=== PATIENT | female | born 1955 | race Caucasian/White ===

== ENCOUNTER → 2017-02-11 | Outpatient (CLI) | payer MEDICARE | END | disposition home or self-care (01) | LOC: LABWHC1 14:24 | PROVIDERS: ATTEND Surgery | DX: E21.3 Hyperparathyroidism, unspecified (principal); R89.9 Unspecified abnormal finding in specimens from other organs, systems and tissues | CPT/HCPCS: 36415; 83970 ==

== ENCOUNTER → 2017-02-17 | Outpatient (CLI) | payer MEDICARE ==
--- NOTE | 2017-02-18 08:30 | NM ---
EXAMINATION TYPE: NM parathyroid w/spect DATE OF EXAM: 02/17/2017 COMPARISON: NONE HISTORY: Hyperparathyroidism TECHNIQUE: Following administration of 26.8 mCi Tc99m Sestamibi. Anterior projection images of the neck and ches t were obtained 10 minutes and 3.5 hours post injection. SPECT images of the neck and chest were obt ained and reconstructed in three axes. FINDINGS: Thyroid tracer washout: Delayed images demonstrate near-complete tracer washout from the thyroid. Parathyroid uptake: None. The two-hour delayed images do not demonstrate any focal abnormal persisten t uptake in the region of the parathyroid glands to suggest parathyroid adenoma. Normal uptake: There is physiological tracer uptake in the myocardium, liver, salivary glands, and th yroid gland. IMPRESSION: Normal parathyroid imaging study. No evidence for mediastinal uptake to suggest mediastinal parathyro id adenoma
== END | disposition home or self-care (01) ==
LOC: RADNMMAIN 10:49
PROVIDERS: ATTEND Surgery
DX: E21.0 Primary hyperparathyroidism (principal); R89.9 Unspecified abnormal finding in specimens from other organs, systems and tissues
CPT/HCPCS: 78071; A9500

== ENCOUNTER → 2017-02-18 | Outpatient (CLI) | payer MEDICARE | END | disposition home or self-care (01) | LOC: LABWHC1 12:10 | PROVIDERS: ATTEND Surgery | DX: E21.0 Primary hyperparathyroidism (principal) | CPT/HCPCS: 36415; 82310 ==

== ENCOUNTER 2018-03-23 11:47 | Inpatient (IN) | payer MEDICARE ==
[2018-03-23] MEDS ORDERED: IPRATROPIUM-ALBUTEROL 3 ML NEB INHALATION STA (12:21)
[2018-03-23] MEDS ORDERED: SODIUM CHLORIDE 0.9% 1,000 ML IV STA (12:21)
--- NOTE | 2018-03-23 12:26 | ED ---
General Adult HPI - General Chief complaint: Shortness of Breath Stated complaint: COPD-sent by Time Seen by Provider: 03/23/18 12:07 Source: patient, RN notes reviewed Mode of arrival: ambulatory Limitations: no limitations - History of Present Illness Initial comments: Patient 62-year-old female presented to the emergency room today with a chief complaint of cough congestion over the last week. She does admit that 2 weeks ago she was getting out of bed and she felt pop. She states that she felt family doctor and diagnosed with a rib fracture. She states that she was then diagnosed with a pneumonia. Started on antibiotics. She states today for 8 days. She states she finished 3 days ago. Does have history stating that he's been doing breathing treatments. States that she does not feel any better. Still having cough congestion and pain on the left side where this rib is injured. She states that she call the family doctor was advised coming here in emergency room. Patient denies any recent fever, chills, shortness of breath, back pain, abdominal pain, nausea or vomiting, numbness or tingling, headaches or visual changes, or any other complaints. - Related Data Home Medications Medication Instructions Recorded Confirmed Albuterol Inhaler [Ventolin Hfa 2 puff INHALATION RT-Q4H PRN 02/05/14 03/23/18 Inhaler] Cranberry Conc/C/Bacill Coag 1 tab PO DAILY 09/11/14 03/23/18 [Cranberry Tablet] Ipratropium-Albuterol Nebulize 3 ml INHALATION RT-QID PRN 09/11/14 03/23/18 [Duoneb 0.5 mg-3 mg/3 ml Soln] Acetylcysteine [Nac] 500 mg PO DAILY 03/23/18 03/23/18 Aspirin [[place] Aspirin EC] 81 mg PO DAILY 03/23/18 03/23/18 Ibuprofen [Motrin] 800 mg PO Q6H PRN 03/23/18 03/23/18 Loratadine [Claritin] 10 mg PO DAILY 03/23/18 03/23/18 Mometasone/Formoterol [Dulera 200 2 puff INHALATION RT-BID 03/23/18 03/23/18 Mcg/5 Mcg Inhaler] Montelukast [Singulair] 10 mg PO HS 03/23/18 03/23/18 Omeprazole 20 mg PO DAILY 03/23/18 03/23/18 Vitamin B Complex 1 cap PO DAILY 03/23/18 03/23/18 Allergies Allergy/AdvReac Type Severity Reaction Status Date / Time beclomethasone [From Qvar] Allergy Anaphylaxis Verified 03/23/18 12:30 budesonide [From Pulmicort] Allergy Anaphylaxis Verified 03/23/18 12:30 Review of Systems ROS Statement: Those systems with pertinent positive or pertinent negative responses have been documented in the HPI. ROS Other: All systems not noted in ROS Statement are negative. Past Medical History Past Medical History: Chest Pain / Angina, COPD, Renal Disease Additional Past Medical History / Comment(s): angioedema no reactions for 10 years. 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 History of Any Multi-Drug Resistant Organisms: None Reported Past Surgical History: Cholecystectomy, Tubal Ligation Additional Past Surgical History / Comment(s): kidney stones, kidney stent Past Anesthesia/Blood Transfusion Reactions: No Reported Reaction Past Psychological History: No Psychological Hx Reported Smoking Status: Current every day smoker Past Alcohol Use History: None Reported Past Drug Use History: None Reported - Past Family History Father Additional Family Medical History / Comment(s): AT AGE 79-[place], DEPRESSION Mother Family Medical History: Hypertension, Thyroid Disorder Additional Family Medical History / Comment(s): MOM IS 84 YEARS OLD Brother(s) Family Medical History: Myocardial Infarction ([place]) Additional Family Medical History / Comment(s): one brother had brain aneurysm. 2nd brother had [place] General Exam - General Exam Comments Initial Comments: General: The patient is awake and alert, in no distress, and does not appear acutely ill. Eye: Pupils are equal, round and reactive to light. Extra-ocular movements are intact. No nystagmus. There is normal conjunctiva bilaterally. No signs of icterus. Ears, nose, mouth and throat: There are moist mucous membranes and no oral lesions. Neck: The neck is supple, there is no tenderness or JVD. Cardiovascular: There is a regular rate and rhythm. No murmur, rub or gallop is appreciated. Respiratory: Decreased lung sounds bilaterally. respirations are non-labored, breath sounds are equal. No wheezes, stridor, rales, or rhonchi. Gastrointestinal: Soft, non-distended, non-tender abdomen without masses or organomegaly noted. There is no rebound or guarding present. No CVA tenderness. Bowel sounds are unremarkable. Musculoskeletal: Normal ROM, no tenderness. Sensation intact. Strength 5/5. Pulses equal bilaterally 2+. Neurological: A&O x 3. CN II-XII intact, There are no obvious motor or sensory deficits. Coordination appears grossly intact. Speech is normal. Skin: Skin is warm and dry and no rashes or lesions are noted. Psychiatric: Cooperative, appropriate mood & affect, normal judgment. Limitations: no limitations Course Vital Signs 03/23/18 03/23/18 03/23/18 12:01 12:42 12:50 Temperature 98.6 F Pulse Rate 115 H 74 78 Respiratory 24 Rate Blood Pressure 116/74 O2 Sat by Pulse 96 Oximetry Medical Decision Making - Medical Decision Making Patient reexamined at this time shows no signs of icterus or dressing covered. As a matter improvement after breathing treatment. Patient's lung sounds are clear. Chest x-rays reviewed does show possible right sided pneumonia. Patient was treated with Levaquin for 8 days. Patient. Patient's labs been reviewed shows a 17,000 white count. Patient was tachycardic at triage. She had taken breathing treatment prior to arrival. Tachycardia is felt to be due to albuterol and history of COPD not due to sepsis at this time. Patient has been started on antibiotics of Rocephin, azithromycin. Patient be admitted. - Lab Data Result diagrams: 03/23/18 12:41 03/23/18 12:41 Lab Results 03/23/18 03/23/18 03/23/18 Range/Units 12:41 12:41 12:41 WBC 17.0 H (3.8-10.6) k/uL RBC 4.43 (3.80-5.40) m/uL Hgb 12.9 (11.4-16.0) gm/dL Hct 39.9 (34.0-46.0) % MCV 90.1 (80.0-100.0) fL MCH 29.1 (25.0-35.0) pg MCHC 32.3 (31.0-37.0) g/dL RDW 13.0 (11.5-15.5) % Plt Count 545 H (150-450) k/uL Neutrophils % 87 % Lymphocytes % 8 % Monocytes % 4 % Eosinophils % 1 % Basophils % 0 % Neutrophils # 14.8 H (1.3-7.7) k/uL Lymphocytes # 1.3 (1.0-4.8) k/uL Monocytes # 0.7 (0-1.0) k/uL Eosinophils # 0.1 (0-0.7) k/uL Basophils # 0.0 (0-0.2) k/uL Sodium 141 (137-145) mmol/L Potassium 4.5 (3.5-5.1) mmol/L Chloride 106 (98-107) mmol/L Carbon Dioxide 26 (22-30) mmol/L Anion Gap 9 mmol/L BUN 12 (7-17) mg/dL Creatinine 0.60 (0.52-1.04) mg/dL Est GFR (CKD-EPI)AfAm >90 (>60 ml/min/1.73 sqM) Est GFR (CKD-EPI)NonAf >90 (>60 ml/min/1.73 sqM) Glucose 105 H (74-99) mg/dL Plasma Lactic Acid Kody (0.7-2.0) mmol/L Calcium 11.0 H (8.4-10.2) mg/dL Total Bilirubin 0.5 (0.2-1.3) mg/dL AST 19 (14-36) U/L ALT 15 (9-52) U/L Alkaline Phosphatase 122 (38-126) U/L Total Creatine Kinase 55 (30-135) U/L CK-MB (CK-2) 0.9 (0.0-2.4) ng/mL CK-MB (CK-2) Rel Index 1.6 Troponin I <0.012 (0.000-0.034) ng/mL Total Protein 7.7 (6.3-8.2) g/dL Albumin 4.1 (3.5-5.0) g/dL 03/23/18 Range/Units 12:41 WBC (3.8-10.6) k/uL RBC (3.80-5.40) m/uL Hgb (11.4-16.0) gm/dL Hct (34.0-46.0) % MCV (80.0-100.0) fL MCH (25.0-35.0) pg MCHC (31.0-37.0) g/dL RDW (11.5-15.5) % Plt Count (150-450) k/uL Neutrophils % % Lymphocytes % % Monocytes % % Eosinophils % % Basophils % % Neutrophils # (1.3-7.7) k/uL Lymphocytes # (1.0-4.8) k/uL Monocytes # (0-1.0) k/uL Eosinophils # (0-0.7) k/uL Basophils # (0-0.2) k/uL Sodium (137-145) mmol/L Potassium (3.5-5.1) mmol/L Chloride (98-107) mmol/L Carbon Dioxide (22-30) mmol/L Anion Gap mmol/L BUN (7-17) mg/dL Creatinine (0.52-1.04) mg/dL Est GFR (CKD-EPI)AfAm (>60 ml/min/1.73 sqM) Est GFR (CKD-EPI)NonAf (>60 ml/min/1.73 sqM) Glucose (74-99) mg/dL Plasma Lactic Acid Kody 1.2 (0.7-2.0) mmol/L Calcium (8.4-10.2) mg/dL Total Bilirubin (0.2-1.3) mg/dL AST (14-36) U/L ALT (9-52) U/L Alkaline Phosphatase (38-126) U/L Total Creatine Kinase (30-135) U/L CK-MB (CK-2) (0.0-2.4) ng/mL CK-MB (CK-2) Rel Index Troponin I (0.000-0.034) ng/mL Total Protein (6.3-8.2) g/dL Albumin (3.5-5.0) g/dL Disposition Clinical Impression: CAP (community acquired pneumonia), COPD exacerbation Disposition: ADMITTED IP TO THIS HOSP Condition: Good Is patient prescribed a controlled substance at d/c from ED?: No Referrals: Luc Baugh MD [Primary Care Provider] - 1-2 days Time of Disposition: 13:53
--- NOTE | 2018-03-23 13:16 | XR ---
EXAMINATION TYPE: XR chest 2V DATE OF EXAM: 03/23/2018 COMPARISON: 09/10/2014 TECHNIQUE: PA and lateral views submitted. HISTORY: Cough FINDINGS: Diffuse emphysematous lungs are seen with subsegmental area of consolidation which is somewhat nodula r in the right lower lobe. Mild wedge deformity in the midthoracic spine is stable from the CT scan o f 10/14/2015. Tiny nodule seen overlying the vertebral, and the lateral view. No overt failure or pneu mothorax. Surgical clips in the abdomen noted. IMPRESSION: 1. COPD. There is subsegmental consolidation which has a somewhat nodular pattern along the lateral m argin of the right lower lobe. Could been the basis of atelectasis, scar or early infiltrate. Follow- up to resolution to exclude underlying neoplasm. 2. Chronic appearing compression deformity midthoracic spine unchanged previous CT 60
[2018-03-23 13:17] LABS: ALT 15 U/L (9-52); AST 19 U/L (14-36); Albumin 4.1 g/dL (3.5-5.0); Alkaline Phosphatase 122 U/L (38-126); Anion Gap 9 mmol/L; Blood Urea Nitrogen 12 mg/dL (7-17); Carbon Dioxide 26 mmol/L (22-30); Chloride 106 mmol/L (98-107); Glucose 105 mg/dL (74-99); Potassium 4.5 mmol/L (3.5-5.1); Sodium 141 mmol/L (137-145); Total Bilirubin 0.5 mg/dL (0.2-1.3); Total Protein 7.7 g/dL (6.3-8.2)
[2018-03-23 13:21] LABS: Creatine Kinase 55 U/L (30-135)
[2018-03-23 13:26] LABS: Basophils % (A) 0 %; Eosinophils # (A) 0.1 k/uL (0-0.7); Eosinophils % (A) 1 %; HCT 39.9 % (34.0-46.0); HGB 12.9 gm/dL (11.4-16.0); Lymphocytes # (A) 1.3 k/uL (1.0-4.8); Lymphocytes % (A) 8 %; MCH 29.1 pg (25.0-35.0); MCHC 32.3 g/dL (31.0-37.0); MCV 90.1 fL (80.0-100.0); Mean Platelet Volume 7.4; Monocytes # (A) 0.7 k/uL (0-1.0); Monocytes % (A) 4 %; Neutrophils # (A) 14.8 k/uL (1.3-7.7); Neutrophils % (A) 87 %; Platelet Count 545 k/uL (150-450); RBC 4.43 m/uL (3.80-5.40)
[2018-03-23 13:34] LABS: Creatine Kinase MB 0.9 ng/mL (0.0-2.4); Troponin I <0.012 ng/mL (0.000-0.034)
[2018-03-23] MEDS ORDERED: AZITHROMYCIN 500 MG in SODIUM CHLORIDE 0.9% 250 ML IVPB STA (13:51)
[2018-03-23] MEDS ORDERED: methylPREDNISolone SOD SUCCI 125 MG/2 ML VIAL IV STA (13:51)
[2018-03-23] MEDS ORDERED: SODIUM CHLORIDE 0.9% 1,000 ML IV ONE (13:54)
[2018-03-23] MEDS ORDERED: PNEUMONIA PROTOCOL UTILIZED 1 EACH MISC PO PRN (13:54)
[2018-03-23 14:15] LABS: Appearance,Urine Clear (Clear); Bilirubin,Urine Negative (Negative); Blood,Urine Negative (Negative); Color,Urine Yellow; Glucose,Urine (UA) Negative (Negative); Ketones,Urine Negative (Negative); Leukocyte Esterase,Urine Trace (Negative); Mucus,Urine Rare /hpf; Nitrite,Urine Negative (Negative); PH, Urine 5.5 (5.0-8.0); Protein,Urine Negative (Negative); RBC,Urine 1 /hpf (0-5); Specific Gravity,Urine 1.013 (1.001-1.035); Squamous Epithelial Cell,Urine 1 /hpf (0-4); Urobilinogen,Urine <2.0 mg/dL (<2.0)
[2018-03-23 15:01] LABS: Partial Thromboplastin Time 22.6 sec (22.0-30.0); Prothrombin Time 9.6 sec (9.0-12.0)
--- NOTE | 2018-03-23 15:42 | P.HPIM ---
History of Present Illness H&P Date: 03/23/18 Chief Complaint: Shortness of Breath Patient is a 62-year-old female with a known history of COPD, nephrolithiasis with stent placement and nicotine addiction came to ER with complaints of shortness of breath, cough and congestion for about a week. Patient states that , about 2 weeks ago while she was getting out of the bed she felt a pop below her left anterior rib cage. Since then she is has been having pain and unable to take deep breaths. Patient was diagnosed with a fracture by her family physician and was also getting treated for pneumonia. Patient was on antibiotics for the past 8 days. She finished antibiotics about 3 days ago. Patient still having pain and shortness of breath along with cough and congestion today which is worsening and made her to come to ER for further management. She states that she call the family doctor was advised coming here in emergency room. Patient denies any recent fever, chills, shortness of breath , back pain, abdominal pain, nausea or vomiting, numbness or tingling, headaches or visual changes, or any other complaints. Chest x-ray showed COPD. There is subsegmental consolidation which has somewhat nodular pattern along the lateral margin of the right lower lobe. Could be the basis of the atelectasis. Scar RE infiltrate. Follow-up resolution to exclude underlying neoplasm. Chronic appearing compression deformity mid thoracic spine on change of from prior CT. EKG showed normal sinus rhythm WBC 17.0, UA negative. Review of Systems Constitutional: Patient denies any fever or chills . No generalized weakness or weight loss. Abdomen: Patient denied nausea vomiting and diarrhea and abdominal pain. Cardiovascular: Patient denies any chest pain or short of breath no palpitations. Respiratory: Cough congestion and shortness of breath. Neurologic: Patient denied any numbness or tingling headache. Musculoskeletal: Patient denies any complaints of joint swelling or deformity. Skin: Negative Psychiatric: Negative Endocrine: No heat or cold intolerance. No recent weight gain. Genitourinary: No dysuria or hematuria. All other 14 point ROS negative except the above Past Medical History Past Medical History: Chest Pain / Angina, COPD, Renal Disease Additional Past Medical History / Comment(s): angioedema no reactions for 10 years. 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 History of Any Multi-Drug Resistant Organisms: None Reported Past Surgical History: Cholecystectomy, Tubal Ligation Additional Past Surgical History / Comment(s): kidney stones, kidney stent Past Anesthesia/Blood Transfusion Reactions: No Reported Reaction Past Psychological History: No Psychological Hx Reported Smoking Status: Current every day smoker Past Alcohol Use History: None Reported Past Drug Use History: None Reported - Past Family History Father Additional Family Medical History / Comment(s): AT AGE 79-[place], DEPRESSION Mother Family Medical History: Hypertension, Thyroid Disorder Additional Family Medical History / Comment(s): MOM IS 84 YEARS OLD Brother(s) Family Medical History: Myocardial Infarction ([place]) Additional Family Medical History / Comment(s): one brother had brain aneurysm. 2nd brother had [place] Medications and Allergies Home Medications Medication Instructions Recorded Confirmed Type Albuterol Inhaler [Ventolin Hfa 2 puff INHALATION RT-Q4H PRN 02/05/14 03/23/18 History Inhaler] Cranberry Conc/C/Bacill Coag 1 tab PO DAILY 09/11/14 03/23/18 History [Cranberry Tablet] Ipratropium-Albuterol Nebulize 3 ml INHALATION RT-QID PRN 09/11/14 03/23/18 History [Duoneb 0.5 mg-3 mg/3 ml Soln] Acetylcysteine [Nac] 500 mg PO DAILY 03/23/18 03/23/18 History Aspirin [[place] Aspirin EC] 81 mg PO DAILY 03/23/18 03/23/18 History Ibuprofen [Motrin] 800 mg PO Q6H PRN 03/23/18 03/23/18 History Loratadine [Claritin] 10 mg PO DAILY 03/23/18 03/23/18 History Mometasone/Formoterol [Dulera 200 2 puff INHALATION RT-BID 03/23/18 03/23/18 History Mcg/5 Mcg Inhaler] Montelukast [Singulair] 10 mg PO HS 03/23/18 03/23/18 History Omeprazole 20 mg PO DAILY 03/23/18 03/23/18 History Vitamin B Complex 1 cap PO DAILY 03/23/18 03/23/18 History Allergies Allergy/AdvReac Type Severity Reaction Status Date / Time beclomethasone [From Qvar] Allergy Anaphylaxis Verified 03/23/18 12:30 budesonide [From Pulmicort] Allergy Anaphylaxis Verified 03/23/18 12:30 Physical Exam Vitals: Vital Signs Temp Pulse Resp BP Pulse Ox 03/23/18 15:01 98.0 F 87 20 121/69 96 03/23/18 14:30 22 136/89 97 03/23/18 14:00 22 109/80 03/23/18 13:30 22 114/71 94 L 03/23/18 13:00 22 103/79 03/23/18 12:50 78 03/23/18 12:42 74 03/23/18 12:30 22 105/69 03/23/18 12:01 98.6 F 115 H 24 116/74 96 Intake and Output 03/23/18 03/23/18 03/23/18 06:59 14:59 22:59 Other: Weight 59.421 kg PHYSICAL EXAMINATION: Patient is lying in the bed comfortably, no acute distress, awake alert and oriented.. HEENT: Normocephalic. Neck is supple. Pupils reactive. Nostrils clear. Oral cavity is moist. Ears reveal no drainage. Neck reveals no JVD, carotid bruits, or thyromegaly. CHEST EXAMINATION: Trachea is central. Symmetrical expansion. Bilateral expiratory wheezing and bibasilar diminished air entry. Mild tenderness of the left anterior rib cage.. CARDIAC: Normal S1, S2 with no gallops. No murmurs ABDOMEN: Soft. Bowel sounds normal. No organomegaly. No abdominal bruits. Extremities: reveal no edema. No clubbing or cyanosis Neurologically awake, alert, oriented x3 with well-coordinated movements. No focal deficits noted Skin: No rash or skin lesions. Psychiatric: Coperative. Nonsuicidal Musculoskeletal: No joint swelling or deformity. Normal range of motion. Results CBC & Chem 7: 03/23/18 12:41 03/23/18 12:41 Labs: Abnormal Lab Results - Last 24 Hours (Table) 03/23/18 03/23/18 03/23/18 Range/Units 12:41 12:41 13:39 WBC 17.0 H (3.8-10.6) k/uL Plt Count 545 H (150-450) k/uL Neutrophils # 14.8 H (1.3-7.7) k/uL Glucose 105 H (74-99) mg/dL Calcium 11.0 H (8.4-10.2) mg/dL Ur Leukocyte Esterase Trace H (Negative) Urine Mucus Rare H (None) /hpf Thrombosis Risk Factor Assmnt - DVT/VTE Prophylaxis DVT/VTE Prophylaxis: Pharmacologic Prophylaxis ordered Assessment and Plan Assessment: Acute COPD exacerbation Possible right lower lobe infiltrate/pneumonia Recent left lower anterior rib pain History of renal stones and stent placement Nicotine addiction. Currently a day smoker DVT prophylaxis Plan: Patient will be continued on DuoNeb's and methylprednisolone IV. Continue with antibiotics in the form of ceftriaxone and azithromycin for possible pneumonia. Continue the pain management and incentive spirometry. Continue the home medications and further recommendations based on the clinical course. DVT prophylaxis with heparin subcu. Time with Patient: Greater than 30
[2018-03-23] MEDS: IBUPROFEN 800 MG TAB PO PRN (15:54)
[2018-03-23] MEDS: HEPARIN SODIUM,PORCINE 5,000 UNIT/ML 1 ML VIAL SQ SCH (15:55)
[2018-03-23 16:03] VITALS: BMI 26.4
[2018-03-23] MEDS: methylPREDNISolone SOD SUCCI 125 MG/2 ML VIAL IV SCH (17:47)
[2018-03-23] MEDS ORDERED: SYMBICORT 160-4.5 MCG INHALER INHALATION SCH (20:00)
[2018-03-23] MEDS: MONTELUKAST 10 MG TAB PO SCH (20:04)
[2018-03-23] MEDS: IPRATROPIUM-ALBUTEROL 3 ML NEB INHALATION PRN (20:28)
[2018-03-24] MEDS: IBUPROFEN 800 MG TAB PO PRN ×3 (00:34→15:14)
[2018-03-24] MEDS: HEPARIN SODIUM,PORCINE 5,000 UNIT/ML 1 ML VIAL SQ SCH ×4 (01:25→22:55)
[2018-03-24] MEDS: methylPREDNISolone SOD SUCCI 125 MG/2 ML VIAL IV SCH ×4 (01:25→18:16)
[2018-03-24] MEDS: IPRATROPIUM-ALBUTEROL 3 ML NEB INHALATION PRN ×4 (07:56→20:09)
[2018-03-24 08:04] LABS: Glucose,Whole Blood 127 mg/dL (75-99)
[2018-03-24] MEDS: PANTOPRAZOLE 40 MG TABLET PO SCH (08:17)
[2018-03-24] MEDS: ASPIRIN 81 MG PO SCH (08:17)
[2018-03-24] MEDS ORDERED: AZITHROMYCIN 500 MG in SODIUM CHLORIDE 0.9% 250 ML IVPB SCH (09:00)
[2018-03-24] MEDS ORDERED: NON-FORMULARY DRUG (Vitamin B Complex [Vitamin B Complex] 1 CAP) PO SCH (09:00)
[2018-03-24] MEDS ORDERED: ACETYLCYSTEINE 500 MG PO SCH (09:00)
[2018-03-24] MEDS ORDERED: NON-FORMULARY DRUG (Cranberry Conc/C/Bacill Coag [Cranberry Tablet] 1 TAB) PO SCH (09:00)
--- NOTE | 2018-03-24 10:05 | XR ---
EXAMINATION TYPE: XR chest 2V DATE OF EXAM: 03/24/2018 COMPARISON: 03/23/2018 TECHNIQUE: PA and lateral views submitted. HISTORY: COPD FINDINGS: Diffuse emphysematous lungs are seen with subsegmental area of consolidation which is somewhat nodula r in the right lower lobe. Mild wedge deformity in the midthoracic spine is stable from the CT scan o f 10/14/2015. Tiny nodule seen overlying the vertebral, and the lateral view. No overt failure or pneu mothorax. Surgical clips in the abdomen noted. IMPRESSION: 1. COPD. There is subsegmental consolidation which has a somewhat nodular pattern along the lateral m argin of the right lower lobe. Could be on the basis of atelectasis, scar or early infiltrate. Follow -up to resolution to exclude underlying neoplasm. 2. Chronic appearing compression deformity midthoracic spine
[2018-03-24 12:05] LABS: Glucose,Whole Blood 131 mg/dL (75-99)
[2018-03-24] MEDS: INSULIN ASPART 100 UNIT/ML 1 ML 10 ML VIAL SQ SCH ×3 (13:05→20:34)
[2018-03-24] MEDS: HYDROcodone/APAP 5-325MG 1 EACH TAB PO PRN ×2 (15:58→20:28)
[2018-03-24 17:28] LABS: Glucose,Whole Blood 132 mg/dL (75-99)
[2018-03-24] MEDS: MONTELUKAST 10 MG TAB PO SCH (20:28)
[2018-03-24 20:34] LABS: Glucose,Whole Blood 152 mg/dL (75-99)
[2018-03-24 21:39] LABS: Hemoglobin A1C 5.8 % (4.0-6.0)
[2018-03-24] MEDS: methylPREDNISolone SOD SUCCI 40 MG/ML 1 ML VIAL IV SCH (22:55)
--- NOTE | 2018-03-25 02:08 | P.PN ---
Subjective Progress Note Date: 03/24/18 Principal diagnosis: Pneumonia COPD exacerbation Patient is a 62-year-old female with a known history of COPD, nephrolithiasis with stent placement and nicotine addiction came to ER with complaints of shortness of breath, cough and congestion for about a week. Patient states that , about 2 weeks ago while she was getting out of the bed she felt a pop below her left anterior rib cage. Since then she is has been having pain and unable to take deep breaths. Patient was diagnosed with a fracture by her family physician and was also getting treated for pneumonia. Patient was on antibiotics for the past 8 days. She finished antibiotics about 3 days ago. Patient still having pain and shortness of breath along with cough and congestion today which is worsening and made her to come to ER for further management. She states that she call the family doctor was advised coming here in emergency room. Patient denies any recent fever, chills, shortness of breath , back pain, abdominal pain, nausea or vomiting, numbness or tingling, headaches or visual changes, or any other complaints. Chest x-ray showed COPD. There is subsegmental consolidation which has somewhat nodular pattern along the lateral margin of the right lower lobe. Could be the basis of the atelectasis. Scar RE infiltrate. Follow-up resolution to exclude underlying neoplasm. Chronic appearing compression deformity mid thoracic spine on change of from prior CT. EKG showed normal sinus rhythm WBC 17.0, UA negative. 03/24/2018 Patient says that her breathing is getting better. Left lower rib pain is still present. Continued on Motrin and [place] was added. Otherwise patient will be continued on steroids and breathing treatments and antibiotics. No fever no chills. No other acute overnight issues. Solu-Medrol changed to 40 mg every 8 hourly. Repeat chest x-ray showed COPD there is subsegmental consolidation which is somewhat nodular pattern along the lateral margin of the right lobe. Could be due to atelectasis. Follow-up recommended to rule out malignancy. All other review of systems negative except the above Active Medications Generic Name Dose Route Start Last Admin Trade Name Freq PRN Reason Stop Dose Admin Hydrocodone Bitart/Acetaminophen 1 each 03/24/18 15:39 03/24/18 20:28 [place] 5-325 PO 1 each Q4HR PRN Administration Pain Albuterol/Ipratropium 3 ml 03/23/18 13:54 03/24/18 20:09 Duoneb 0.5 Mg-3 Mg/3 Ml Soln INHALATION 3 ml RT-Q4H PRN Administration shortness of breath Aspirin 81 mg 03/24/18 09:00 03/24/18 08:17 Aspirin PO 81 mg DAILY CHELSEA Administration Azithromycin 500 mg 03/25/18 09:00 Zithromax PO DAILY CHELSEA Heparin Sodium (Porcine) 5,000 unit 03/23/18 16:00 03/24/18 22:55 Heparin SQ 5,000 unit Q8HR CHELSEA Administration Ceftriaxone Sodium 1,000 mg/ 50 mls @ 100 mls/hr 03/24/18 09:00 03/24/18 08: 17 Sodium Chloride IVPB 03/27/18 09:01 100 mls/hr Q24HR CHELSEA Administration Ibuprofen 800 mg 03/23/18 15:35 03/24/18 15:14 Motrin PO 800 mg Q6H PRN Administration Pain Insulin Aspart 0 unit 03/24/18 12:30 03/24/18 20:34 Novolog SQ 2 unit ACHS CHELSEA Administration Protocol Methylprednisolone Sodium Succinate 40 mg 03/25/18 00:00 03/24/18 22:55 Solu-Medrol IV 40 mg Q8H CHELSEA Administration Miscellaneous Information 1 each 03/23/18 13:54 Pneumonia Protocol Utilized PO ONCE PRN Per Protocol Montelukast Sodium 10 mg 03/23/18 21:00 03/24/18 20:28 Singulair PO 10 mg HS CHELSEA Administration Pantoprazole Sodium 40 mg 03/24/18 07:30 03/24/18 08:17 Protonix PO 40 mg [id number] CHELSEA Administration Objective - Vital Signs Vital signs: Vital Signs Temp 98.8 F 03/24/18 14:19 Pulse 88 03/24/18 20:19 Resp 18 03/24/18 18:55 BP 135/71 03/24/18 14:19 Pulse Ox 93 L 03/24/18 14:19 Intake & Output 03/24/18 03/24/18 03/25/18 06:59 18:59 06:59 Intake Total 230 Balance 230 Weight 59.421 kg Intake: Oral 230 Other: Voiding Method Toilet Toilet # Voids 1 3 1 # Bowel Movements 0 - Exam PHYSICAL EXAMINATION: Patient is lying in the bed comfortably, no acute distress, awake alert and oriented.. HEENT: Normocephalic. Neck is supple. Pupils reactive. Nostrils clear. Oral cavity is moist. Ears reveal no drainage. Neck reveals no JVD, carotid bruits, or thyromegaly. CHEST EXAMINATION: Trachea is central. Symmetrical expansion. Bilateral expiratory wheezing and bibasilar diminished air entry. Mild tenderness of the left anterior rib cage.. CARDIAC: Normal S1, S2 with no gallops. No murmurs ABDOMEN: Soft. Bowel sounds normal. No organomegaly. No abdominal bruits. Extremities: reveal no edema. No clubbing or cyanosis Neurologically awake, alert, oriented x3 with well-coordinated movements. No focal deficits noted Skin: No rash or skin lesions. Psychiatric: Coperative. Nonsuicidal Musculoskeletal: No joint swelling or deformity. Normal range of motion. - Labs CBC & Chem 7: 03/23/18 12:41 03/23/18 12:41 Labs: Abnormal Lab Results - Last 24 Hours (Table) 03/24/18 03/24/18 03/24/18 Range/Units 08:01 11:58 17:23 POC Glucose (mg/dL) 127 H 131 H 132 H (75-99) mg/dL 03/24/18 Range/Units 20:32 POC Glucose (mg/dL) 152 H (75-99) mg/dL Microbiology - Last 24 Hours (Table) 03/23/18 14:19 Blood Culture - Preliminary Blood No Growth after 24 hours 03/23/18 12:41 Blood Culture - Preliminary Blood No Growth after 24 hours Assessment and Plan Assessment: Acute COPD exacerbation Possible right lower lobe infiltrate/pneumonia Recent left lower anterior rib / strain History of renal stones and stent placement Nicotine addiction. Currently a day smoker DVT prophylaxis Plan: Patient will be continued on DuoNeb's and methylprednisolone IV. Continue with antibiotics in the form of ceftriaxone and azithromycin for possible pneumonia. Continue the pain management and incentive spirometry. Continue the home medications and further recommendations based on the clinical course. DVT prophylaxis with heparin subcu. Time with Patient: Greater than 30
[2018-03-25] MEDS: IPRATROPIUM-ALBUTEROL 3 ML NEB INHALATION PRN ×2 (07:30→10:43)
[2018-03-25 07:43] LABS: Glucose,Whole Blood 106 mg/dL (75-99)
[2018-03-25 07:59] LABS: Basophils % (A) 0 %; Eosinophils # (A) 0.1 k/uL (0-0.7); Eosinophils % (A) 0 %; HCT 37.9 % (34.0-46.0); HGB 11.7 gm/dL (11.4-16.0); Lymphocytes # (A) 1.6 k/uL (1.0-4.8); Lymphocytes % (A) 9 %; MCH 28.3 pg (25.0-35.0); MCHC 30.8 g/dL (31.0-37.0); MCV 91.7 fL (80.0-100.0); Mean Platelet Volume 6.7; Monocytes # (A) 0.4 k/uL (0-1.0); Monocytes % (A) 2 %; Neutrophils # (A) 16.5 k/uL (1.3-7.7); Neutrophils % (A) 89 %; Platelet Count 640 k/uL (150-450); RBC 4.13 m/uL (3.80-5.40); RDW 12.8 % (11.5-15.5); WBC 18.6 k/uL (3.8-10.6)
[2018-03-25 08:06] LABS: Anion Gap 5 mmol/L; Blood Urea Nitrogen 18 mg/dL (7-17); Calcium 10.6 mg/dL (8.4-10.2); Carbon Dioxide 24 mmol/L (22-30); Chloride 112 mmol/L (98-107); Glucose 109 mg/dL (74-99); Potassium 4.7 mmol/L (3.5-5.1); Sodium 141 mmol/L (137-145)
[2018-03-25] MEDS: INSULIN ASPART 100 UNIT/ML 1 ML 10 ML VIAL SQ SCH ×4 (08:46→20:47)
[2018-03-25] MEDS: HYDROcodone/APAP 5-325MG 1 EACH TAB PO PRN ×3 (08:49→20:42)
[2018-03-25] MEDS: methylPREDNISolone SOD SUCCI 40 MG/ML 1 ML VIAL IV SCH ×2 (08:52→17:15)
[2018-03-25] MEDS: AZITHROMYCIN 500 MG TAB PO SCH (08:52)
[2018-03-25] MEDS: PANTOPRAZOLE 40 MG TABLET PO SCH (08:52)
[2018-03-25] MEDS: ASPIRIN 81 MG PO SCH (08:52)
[2018-03-25] MEDS: HEPARIN SODIUM,PORCINE 5,000 UNIT/ML 1 ML VIAL SQ SCH ×2 (08:53→17:15)
[2018-03-25 12:00] LABS: Glucose,Whole Blood 103 mg/dL (75-99)
[2018-03-25] MEDS ORDERED: HYDROcodone/APAP 5-325MG 1 EACH TAB PO SCH (14:45)
--- NOTE | 2018-03-25 16:28 | PN ---
PROGRESS NOTE DATE OF SERVICE: 03/25/2018 This 62-year-old woman was admitted with COPD acute exacerbation also had suspected pneumonia. The patient had a possible right upper lobe infiltrate. The patient also complained of left-sided chest pain. The patient also had failure for outpatient treatment with antibiotics at home. Patient has been closely monitored. There is no history of fever, rigors or chills. PAST MEDICAL HISTORY: Reviewed. REVIEW OF SYSTEMS: CARDIOVASCULAR: No angina. RESPIRATORY: As mentioned earlier. GI: As mentioned. : No dysuria. NERVOUS SYSTEM: No numbness or weakness. CURRENT MEDICATIONS: Reviewed and include: 1. Challenge 5 mg p.r.n. 2. DuoNeb q.i.d. 3. Aspirin 81 mg. 4. Zithromax. 5. Rocephin 1 g daily. 6. Motrin. 7. Solu-Medrol. 8. Protonix. PHYSICAL EXAM: Patient is alert, oriented x3. The pulse is 88, blood pressure 120/71, respiration 20, temperature 97.6, pulse ox 93% on room air, 80% on ambulation. HEENT: Conjunctivae normal. Oral mucosa moist. Neck is no jugular venous distention. No carotid bruit. No lymph node enlargement. CARDIOVASCULAR: S1, S2. RESPIRATORY: Breath sounds diminished in the bases. Bilateral scattered rhonchi and crackles. Expiratory wheezing also present. Breathing efforts are markedly increased. ABDOMEN: Soft, nontender. No mass palpable. LEGS: No edema, no swelling. NERVOUS SYSTEM: Higher functions as mentioned. Moves all 4 limbs. No focal motor deficit. LYMPHATICS: No lymphadenopathy in the neck, axillae, groin. SKIN: No ulcers, rash or bleeding. LAB STUDIES: WBC 18.2, hemoglobin 11.7, glucose noted. Calcium is 10.6. ASSESSMENT: 1. Chronic obstructive pulmonary disease exacerbation with possible right lower lobe pneumonia possibly gram-negative with failure of outpatient treatment. 2. Left lower rib pain or strain. 3. History of nephrolithiasis and stent placement. 4. History of nicotine dependence. 5. DVT prophylaxis. 6. Increased WBC. RECOMMENDATIONS AND DISCUSSION: This 62-year-old woman who presented with multiple complex medical issues, we will monitor the patient closely, continue the current management and symptomatic treatment. I recommend continue with IV antibiotics, Zithromax and also recommend incentive spirometry, bronchodilators. The patient may take from home. The patient is allergic to . The prognosis is guarded because of multiple complex medical issues. Further recommendations to follow. See orders for details. We will make the pain medications around the clock. Further recommendations to follow. NYAL / IJN: [id number] / MTDD
[2018-03-25] MEDS: IPRATROPIUM-ALBUTEROL 3 ML NEB INHALATION SCH ×2 (16:44→20:33)
[2018-03-25 17:02] LABS: Glucose,Whole Blood 108 mg/dL (75-99)
[2018-03-25] MEDS: HYDROcodone/APAP 5-325MG 1 EACH TAB PO SCH (17:25)
[2018-03-25 20:18] LABS: Glucose,Whole Blood 161 mg/dL (75-99)
[2018-03-25] MEDS: MONTELUKAST 10 MG TAB PO SCH (20:47)
[2018-03-26] MEDS: HYDROcodone/APAP 5-325MG 1 EACH TAB PO SCH ×4 (00:03→18:19)
[2018-03-26] MEDS: methylPREDNISolone SOD SUCCI 40 MG/ML 1 ML VIAL IV SCH ×3 (00:06→16:05)
[2018-03-26] MEDS: HEPARIN SODIUM,PORCINE 5,000 UNIT/ML 1 ML VIAL SQ SCH ×3 (00:06→16:05)
[2018-03-26] MEDS: IPRATROPIUM-ALBUTEROL 3 ML NEB INHALATION SCH ×4 (07:07→19:57)
[2018-03-26 07:14] LABS: Glucose,Whole Blood 112 mg/dL (75-99)
[2018-03-26] MEDS: INSULIN ASPART 100 UNIT/ML 1 ML 10 ML VIAL SQ SCH ×4 (07:35→21:06)
[2018-03-26] MEDS: PANTOPRAZOLE 40 MG TABLET PO SCH (08:24)
[2018-03-26] MEDS: ASPIRIN 81 MG PO SCH (08:24)
[2018-03-26] MEDS: AZITHROMYCIN 500 MG TAB PO SCH (08:24)
[2018-03-26 11:32] LABS: Glucose,Whole Blood 98 mg/dL (75-99)
[2018-03-26 16:42] LABS: Glucose,Whole Blood 95 mg/dL (75-99)
[2018-03-26 20:27] LABS: Glucose,Whole Blood 118 mg/dL (75-99)
[2018-03-26] MEDS: MONTELUKAST 10 MG TAB PO SCH (21:13)
--- NOTE | 2018-03-26 21:53 | PN ---
PROGRESS NOTE DATE OF SERVICE: 03/26/2018 This 62-year-old woman who was admitted with COPD exacerbation, pneumonia is being closely monitored. Short of breath is slightly improved. The patient is on IV antibiotics. No chest pain. No palpitations. No fever. PHYSICAL EXAM: Alert and oriented times three. Pulse 105. Blood pressure 139/74, respiration 20, temperature 97.6. HEENT: Conjunctivae normal. Oral mucosa moist. Neck is no jugular venous distention. No carotid bruit. No lymph node enlargement. CARDIOVASCULAR: S1, S2, muffled. No S3, no S4. RESPIRATORY: Breath sounds diminished in the bases. A few scattered rhonchi and crackles. ABDOMEN: Soft, nontender. No mass palpable. LEGS: No edema. No swelling. LABS: Accu-Cheks 112 and 98. Other labs are noted. ASSESSMENT: 1. Chronic obstructive pulmonary disease acute exacerbation with possible acute right lower lobe pneumonia possibly gram-negative with failure of outpatient treatment. 2. Left lower lobe pain and strain. 3. History of nephrolithiasis and stent placement. 4. History of nicotine dependence. 5. Deep vein thrombosis prophylaxis. 6. Increased WBC. RECOMMENDATIONS AND DISCUSSION: Recommend to continue current medications, recommendations and management. Continue with symptomatic treatment. Continue antibiotics, continue with bronchodilators. Pain medications. Guarded prognosis because of multiple complex medical issues. Further recommendations to follow. MMODL / IJN: [id number] /
[2018-03-27 00:30] VITALS: RESP 18
[2018-03-27] MEDS: HYDROcodone/APAP 5-325MG 1 EACH TAB PO SCH ×3 (00:33→12:36)
[2018-03-27] MEDS: methylPREDNISolone SOD SUCCI 40 MG/ML 1 ML VIAL IV SCH ×2 (00:33→08:03)
[2018-03-27] MEDS: HEPARIN SODIUM,PORCINE 5,000 UNIT/ML 1 ML VIAL SQ SCH ×2 (00:33→08:03)
[2018-03-27 06:28] VITALS: BP 143/79; TEMP 97.9
[2018-03-27] MEDS: INSULIN ASPART 100 UNIT/ML 1 ML 10 ML VIAL SQ SCH ×2 (07:21→12:26)
[2018-03-27 07:22] LABS: Glucose,Whole Blood 106 mg/dL (75-99)
[2018-03-27] MEDS: ASPIRIN 81 MG PO SCH (08:03)
[2018-03-27] MEDS: AZITHROMYCIN 500 MG TAB PO SCH (08:03)
[2018-03-27] MEDS: PANTOPRAZOLE 40 MG TABLET PO SCH (08:03)
[2018-03-27] MEDS: IPRATROPIUM-ALBUTEROL 3 ML NEB INHALATION SCH ×2 (08:37→14:06)
[2018-03-27 09:57] LABS: Anion Gap 7 mmol/L; Blood Urea Nitrogen 19 mg/dL (7-17); Calcium 10.7 mg/dL (8.4-10.2); Carbon Dioxide 26 mmol/L (22-30); Chloride 106 mmol/L (98-107); Glucose 102 mg/dL (74-99); Potassium 4.9 mmol/L (3.5-5.1); Sodium 139 mmol/L (137-145)
[2018-03-27 10:20] VITALS: PULSE 78
[2018-03-27 10:59] LABS: Basophils % (A) 0 %; Eosinophils % (A) 0 %; HCT 39.5 % (34.0-46.0); HGB 12.2 gm/dL (11.4-16.0); Lymphocytes # (A) 2.1 k/uL (1.0-4.8); Lymphocytes % (A) 16 %; MCH 28.4 pg (25.0-35.0); MCV 91.6 fL (80.0-100.0); Mean Platelet Volume 7.6; Monocytes # (A) 0.4 k/uL (0-1.0); Monocytes % (A) 3 %; Neutrophils # (A) 10.7 k/uL (1.3-7.7); Neutrophils % (A) 80 %; Platelet Count 665 k/uL (150-450); RBC 4.32 m/uL (3.80-5.40); RDW 13.1 % (11.5-15.5); WBC 13.4 k/uL (3.8-10.6)
[2018-03-27 12:27] LABS: Glucose,Whole Blood 106 mg/dL (75-99)
--- NOTE | 2018-03-27 15:48 | P.DS ---
Providers Date of admission: 03/23/18 14:30 Expected date of discharge: 03/27/18 Attending physician: Kenneth Marlow Primary care physician: Luc kaley [facility] Course: Final Diagnoses: Acute COPD exacerbation Possible right lower lobe infiltrate/pneumonia Repeat chest x-ray showed COPD there is subsegmental consolidation which is somewhat nodular pattern along the lateral margin of the right lobe, possible atelectasis. Follow-up outpatient recommended to rule out malignancy. Patient states she will follow with pulmonary doctor Jacky in 1 week. Recent left lower anterior rib / strain History of renal stones and stent placement Nicotine addiction. Currently a day smoker DVT prophylaxis History of hyperparathyroidism, patient states being worked up outpatient. Declined PTH and vitamin D levels, as she's already completed this outpatient Hospital course:Pneumonia COPD exacerbation Patient is a 62-year-old female with a known history of COPD, nephrolithiasis with stent placement and nicotine addiction came to ER with complaints of shortness of breath, cough and congestion for about a week. Patient states that , about 2 weeks ago while she was getting out of the bed she felt a pop below her left anterior rib cage. Since then she is has been having pain and unable to take deep breaths. Patient was diagnosed with a fracture by her family physician and was also getting treated for pneumonia. Patient was on antibiotics for the past 8 days. She finished antibiotics about 3 days ago. Patient still having pain and shortness of breath along with cough and congestion today which is worsening and made her to come to ER for further management. She states that she call the family doctor was advised coming here in emergency room. Patient denies any recent fever, chills, shortness of breath , back pain, abdominal pain, nausea or vomiting, numbness or tingling, headaches or visual changes, or any other complaints. Chest x-ray showed COPD. There is subsegmental consolidation which has somewhat nodular pattern along the lateral margin of the right lower lobe. Could be the basis of the atelectasis. Scar RE infiltrate. Follow-up resolution to exclude underlying neoplasm. Chronic appearing compression deformity mid thoracic spine on change of from prior CT. EKG showed normal sinus rhythm WBC 17.0, UA negative. Maintained on nebulized bronchodilators, IV steroids, antibiotics with significant clinical improvement. Repeat chest x-ray showed COPD there is subsegmental consolidation which is somewhat nodular pattern along the lateral margin of the right lobe, possible atelectasis. Follow-up outpatient recommended to rule out malignancy. Patient is being discharged home in a stable condition with guarded prognosis. EXAMINATION: Patient is alert and oriented 3, no acute distress CHEST EXAMINATION: Trachea is central. Symmetrical expansion. Diminished CARDIAC: Normal S1, S2 with no gallops. No murmurs ABDOMEN: Soft. Bowel sounds normal. No organomegaly. Neurologically No focal deficits noted The impression and plan of care has been dictated as directed. : I performed a history and examination of this patient, discussed the same with the dictator. I agree with the dictator's note ,documented as a scribe. Any additional findings or plans will be noted. Time taken: 35 minutes Patient Condition at Discharge: Stable Plan - Discharge Summary Discharge Rx Participant: No New Discharge Prescriptions: New Azithromycin [Zithromax] 500 mg PO DAILY #5 tab Ipratropium-Albuterol Nebulize [Duoneb 0.5 mg-3 mg/3 ml Soln] 3 ml INHALATION RT-QID #120 ampul.neb predniSONE 10 mg PO DIRECTED #30 tab Continue Albuterol Inhaler [Ventolin Hfa Inhaler] 2 puff INHALATION RT-Q4H PRN PRN Reason: Shortness Of Breath Or Wheezing Ipratropium-Albuterol Nebulize [Duoneb 0.5 mg-3 mg/3 ml Soln] 3 ml INHALATION RT-QID PRN PRN Reason: Shortness Of Breath Cranberry Conc/C/Bacill Coag [Cranberry Tablet] 1 tab PO DAILY Vitamin B Complex 1 cap PO DAILY Ibuprofen [Motrin] 800 mg PO Q6H PRN PRN Reason: Pain Aspirin [Mcneil Aspirin EC] 81 mg PO DAILY Omeprazole 20 mg PO DAILY Loratadine [Claritin] 10 mg PO DAILY Montelukast [Singulair] 10 mg PO HS Mometasone/Formoterol [Dulera 200 Mcg/5 Mcg Inhaler] 2 puff INHALATION RT-BID Acetylcysteine [Nac] 500 mg PO DAILY Discharge Medication List Albuterol Inhaler [Ventolin Hfa Inhaler] 2 puff INHALATION RT-Q4H PRN 02/05/14 [ History] Cranberry Conc/C/Bacill Coag [Cranberry Tablet] 1 tab PO DAILY 09/11/14 [History ] Ipratropium-Albuterol Nebulize [Duoneb 0.5 mg-3 mg/3 ml Soln] 3 ml INHALATION RT -QID PRN 09/11/14 [History] Acetylcysteine [Nac] 500 mg PO DAILY 03/23/18 [History] Aspirin [Mcneil Aspirin EC] 81 mg PO DAILY 03/23/18 [History] Ibuprofen [Motrin] 800 mg PO Q6H PRN 03/23/18 [History] Loratadine [Claritin] 10 mg PO DAILY 03/23/18 [History] Mometasone/Formoterol [Dulera 200 Mcg/5 Mcg Inhaler] 2 puff INHALATION RT-BID [History] Montelukast [Singulair] 10 mg PO HS 03/23/18 [History] Omeprazole 20 mg PO DAILY 03/23/18 [History] Vitamin B Complex 1 cap PO DAILY 03/23/18 [History] Azithromycin [Zithromax] 500 mg PO DAILY #5 tab 03/27/18 [Rx] Ipratropium-Albuterol Nebulize [Duoneb 0.5 mg-3 mg/3 ml Soln] 3 ml INHALATION RT -QID #120 ampul.neb 03/27/18 [Rx] predniSONE 10 mg PO DIRECTED #30 tab 03/27/18 [Rx] Follow up Appointment(s)/Referral(s): Luc Baugh MD [Primary Care Provider] - 3 Days (Office is closed. Please call to set up follow up appt.) Bijan Rico MD [STAFF PHYSICIAN] - 1 Week Ambulatory/Diagnostic Orders: Complete Blood Count w/diff [LAB.AMB] Time Frame: 3 Days, Location: None Selected Patient Instructions/Handouts: COPD (Chronic Obstructive Pulmonary Disease) (DC ) Activity/Diet/Wound Care/Special Instructions: Oxygen at 2l NC as needed. [facility] [phone]- PLEASE CALL AT D/C FOR DELIVERY OF CONCENTRATOR AND SUPPLIES. Discharge Disposition: HOME SELF-CARE
--- NOTE | 2018-03-30 14:39 | CDI ---
Last Revision, April 2017 Documentation Clarification Form Date: 03/30/18 From: Concepción Franko Lilia Flynn, Rn Float Hours-8:30 am & 5 pm M-F Admit Date: 03/23/2018 2:30:00 PM Patient Name: Som August Visit Number: [id number] Discharge Date: 03/27/18 ATTENTION: The Clinical Documentation Specialists (CDI) and [facility] Coding Staff appreciate your assistance in clarifying documentation. Please respond to the clarification below the line at the bottom and electronically sign. The CDI & [facility] Coding staff will review the response and follow-up if needed. Please note: Queries are made part of the Legal Health Record. If you have any questions, please contact the author of this message via ITS. Dr. Kem Marlow MD Pneumonia was documented in your notes on: ED note, H&P, PNs 03/24, 03/25, 03/26 & DS. 03/25 PN states "possible right lower lobe pneumonia possibly gram-negative with failure of outpatient treatment". History/Risk Factors: failed OP treatment, smoker, COPD WBC/Left shift: 17.0/14.8 X-ray: 03/23-or early infiltrate Lung/Breathing assessment: cough, congestion, SOB. respirations are non-labored Treatment: pneumonia protocal, IV Solu-Medrol Antibiotics: IV Zithromax, IV Rocephin, O2 Breathing Tx: nebulizer, Symbicort In order to capture the severity of condition, please clarify if the condition signifies and you are treating for: Gram Negative Pneumonia ruled in Gram Negative Pneumonia ruled out Community acquired pneumonia only Other, please specify Unable to determine Please continue to document in your progress notes and discharge summary in order to capture severity of illness and risk of mortality. Include clinical findings that support your diagnosis. Community acquired pneumonia only MTDD
== END 2018-03-27 14:07 | disposition home or self-care (01) | DRG 194 ==
LOC: EC 11:47 → 4MS4W 14:01 → OBSVTOIN 14:30 → 4MS4W 14:54
PROVIDERS: ADMIT Internal Medicine; ATTEND Internal Medicine
DX: J18.9 Pneumonia, unspecified organism (principal); J44.0 Chronic obstructive pulmonary disease with (acute) lower respiratory infection; S22.39XA Fracture of one rib, unspecified side, initial encounter for closed fracture; C34.91 Malignant neoplasm of unspecified part of right bronchus or lung; J44.1 Chronic obstructive pulmonary disease with (acute) exacerbation; N28.9 Disorder of kidney and ureter, unspecified; E21.3 Hyperparathyroidism, unspecified; F17.200 Nicotine dependence, unspecified, uncomplicated; Z71.6 Tobacco abuse counseling; Z79.82 Long term (current) use of aspirin; Z79.51 Long term (current) use of inhaled steroids; Z79.899 Other long term (current) drug therapy; Z88.8 Allergy status to other drugs, medicaments and biological substances; Z90.49 Acquired absence of other specified parts of digestive tract; Z98.51 Tubal ligation status; Z87.442 Personal history of urinary calculi; Z82.0 Family history of epilepsy and other diseases of the nervous system; Z81.8 Family history of other mental and behavioral disorders; Z82.49 Family history of ischemic heart disease and other diseases of the circulatory system; Z83.49 Family history of other endocrine, nutritional and metabolic diseases
CPT/HCPCS: 36415; 71046; 80048; 80053; 81001; 82306; 82550; 82553; 83036; 83605; 84484; 85025; 85610; 85730; 87040; 87070; 87205; 93005; 94640; 94760; 96361; 96365; 96375; 99285